=== PATIENT | female | born 1970 | race Caucasian/White ===

== ENCOUNTER 2016-03-31 08:21 | Emergency (ER) | payer BC ==
[~2016-03-31] VITALS: Ht 157.5 cm; Wt 79.1 kg
[~2016-03-31 08:21] MED LIST: ALBUTEROL SULFAT8 MG; ALBUTEROL0.83 MG/ML IH; AMITRIPTYLINE H10 M1 PO; AMITRIPTYLINE H50 M1 PO; AMOXICILLIN 50500 MG PO; AMOXICILLIN875 MG PO; ATIVAN; ATIVAN 1MG T1 MG/TAB PO; BACTRIM DS 8001 TAB PO; CARAFATE 1GM1 G PO; CATAFLAM50 MG PO; CELEXA; CEPHALEXIN500 M1 PO; CIPRO 500MG TA500 MG PO; CLEOCIN HC150 MG/CAP PO; CLEOCIN HCL300 MG PO; CLINDAMYCIN300 MG PO; COREG12.5 MG PO; COSOPT EYE DROPS; CYMBALTA 60MG60 MG PO; DIAZEPAM5 MG PO; DOXYCYCLINE 10100 MG PO; ESCITALOPRAM PO; FENTANYL 50MCG TOP; FLAGYL500 MG PO; GEODON 40MG40 MG PO; IBUPROFEN800 MG PO; LASIX 20MG TABL20 MG PO; LORTAB 5/500 501 TAB PO; LORTAB 7.5/5001 TAB PO; LORTAB ELIX0.5 MG/ML PO; METRONIDAZOLE375 MG PO; METRONIDAZOLE500 MG PO; MOTRIN 600600 MG/TAB PO; MOTRIN800 MG PO; MUPIROCIN2% TP; NAPROSYN500 MG PO; NEURONTIN300 MG/CAP; NEURONTIN300 MG/CAP PO; NEURONTIN600 MG/TAB PO; NO HOME MEDICATIONS; NORCO 325 MG-51 TAB PO; OCUFLOX OPHTH DR5 ML OS; OXYCONTIN 10MG10 MG PO; PEN-VEE K500 MG PO; PENICILLIN250 MG PO; PERCOCET 325 MG1 TA2; PERCOCET 325 MG1 TA2 PO; PERCOCET 325 MG1 TA3 PO; PERCR 7.5 PO; PERIDEX (CHLOR480 ML MM; PHENERGAN 25 TA25 MG PO; PREDNISONE20 MG PO; PRIL40 PO; PRILOSEC 20MG20 MG PO; PROAIR HFA0.09 MG/AC IH; PROTONIX20 MG PO; REGLAN 10MG10 MG/TAB PO; SEPTRA DS 8001 TAB PO; TOPROL XL 50MG50 MG; TOPROL XL 50MG50 MG PO; TUSS PO; VALIUM 5MG T5 MG/TAB PO; VICODIN 5/5001 UDTAB PO; ZESTRIL 20MG TA20 MG PO; ZITHROMAX Z PA250 MG PO; ZOFRAN 4MG T4 MG/TAB PO
[2016-03-31 08:24] VITALS: TEMP 97.7
[2016-03-31 09:14] LABS: BASO # 0.1 (0.0-0.2); BASO % 0.4 % (0.0-2.0); EOS # 0.1 (0.0-0.7); EOS % 0.9 % (0-4.0); GRAN # 8.2 (1.4-6.5); GRAN % 61.6 % (42.2-75.2); HEMATOCRIT 42.2 % (37.0-47.0); HEMOGLOBIN 14.3 g/dl (12.5-16.0); LYMPH # 3.9 (1.2-3.4); LYMPH % 29.7 % (20.0-51.0); MEAN CELL VOLUME 87 fl (80.0-100.0); MEAN CORPUSCULAR HEMOGLOBIN 29 pg (27.0-31.0); MEAN CORPUSCULAR HGB CONC 34 g/dl (33.0-37.0); MEAN PLATELET VOLUME 10.3 fl (7.4-10.4); MONO # 0.9 (0.1-0.6); MONO % 6.9 % (1.7-9.3); PLATELET COUNT 299 K/mm3 (130-400); RED BLOOD COUNT 4.88 M/mm3 (4.10-5.30); REDCELL DISTRIBUTION WIDTH-CV 13.2 % (11.5-14.5); WHITE BLOOD COUNT 13.3 K/mm3 (4.8-10.8)
[2016-03-31 09:23] LABS: ADJUSTED CALCIUM 9.3 mg/dL (8.4-10.2); ALBUMIN 4.4 gm/dL (3.5-5.0); BILIRUBIN,TOTAL 1.1 mg/dL (0.0-1.0); CALCIUM 9.6 mg/dL (8.4-10.2); CREATININE, serum 0.79 mg/dL (0.52-1.25); TOTAL PROTEIN 7.7 gm/dL (6.4-8.2)
[2016-03-31] MEDS ORDERED: ZOFRAN8 MG PO (09:33)
[2016-03-31] MEDS ORDERED: ULTRAM 50MG TAB50 MG PO (09:33)
[2016-03-31] MEDS ORDERED: BACTRIM DS 8001 TAB PO (09:33)
[2016-03-31 09:38] LABS: PH 6 (5-8); SQUAMOUS EPITHELIAL 0-2 /hpf; URINE APPEARANCE Hazy; URINE BACTERIA Occasional /hpf; URINE BILIRUBIN Negative (NEGATIVE); URINE BLOOD 2+ (NEGATIVE); URINE COLOR Yellow; URINE GLUCOSE Negative (NEGATIVE); URINE KETONE Negative (NEGATIVE); URINE RBC 0-2 /hpf; URINE UROBILINOGEN Negative (NEGATIVE); URINE WBC >50 /hpf
[2016-03-31 10:05] VITALS: BP 134/73; PULSE 99
== END 2016-03-31 10:29 | disposition home or self-care (01) ==
LOC: COL.ER 08:21
PROVIDERS: Emergency Medicine
DX: R10.11 Right upper quadrant pain (principal); R10.13 Epigastric pain; R19.7 Diarrhea, unspecified; R05 Cough; R06.2 Wheezing; F17.210 Nicotine dependence, cigarettes, uncomplicated
CPT/HCPCS: J1170; J1885; J2405; J7030

== ENCOUNTER 2016-10-27 19:30 | Emergency (ER) | payer SELFPAY ==
[~2016-10-27] VITALS: Ht 157.5 cm; Wt 78.2 kg
[~2016-10-27 19:30] MED LIST changes: +ULTRAM 50MG TAB50 MG PO; +ZOFRAN8 MG PO
[2016-10-27 19:31] VITALS: TEMP 98.1
[2016-10-27 20:15] LABS: BASO # 0.1 (0.0-0.2); BASO % 0.5 % (0.0-2.0); EOS # 0.4 (0.0-0.7); EOS % 3.8 % (0-4.0); GRAN # 3.8 (1.4-6.5); GRAN % 41.7 % (42.2-75.2); HEMATOCRIT 36.9 % (37.0-47.0); HEMOGLOBIN 12.6 g/dl (12.5-16.0); LYMPH # 4.4 (1.2-3.4); LYMPH % 47.8 % (20.0-51.0); MEAN CELL VOLUME 85 fl (80.0-100.0); MEAN CORPUSCULAR HEMOGLOBIN 29 pg (27.0-31.0); MEAN CORPUSCULAR HGB CONC 34 g/dl (33.0-37.0); MONO # 0.6 (0.1-0.6); MONO % 6.1 % (1.7-9.3); PLATELET COUNT 241 K/mm3 (130-400); RED BLOOD COUNT 4.33 M/mm3 (4.10-5.30); REDCELL DISTRIBUTION WIDTH-CV 12.3 % (11.5-14.5); WHITE BLOOD COUNT 9.1 K/mm3 (4.8-10.8)
[2016-10-27 20:28] LABS: ADJUSTED CALCIUM 8.6 mg/dL (8.4-10.2); ALANINE AMINOTRANSFERASE 20 U/L (9-52); ALBUMIN 4.3 gm/dL (3.5-5.0); ALKALINE PHOSPHATASE 74 U/L (50-136); ANION GAP 13 mmol/L (7-16); BILIRUBIN,TOTAL 0.6 mg/dL (0.0-1.0); BLOOD UREA NITROGEN 10 mg/dL (7-17); CALCIUM 8.8 mg/dL (8.4-10.2); CARBON DIOXIDE 23 mmol/L (22-30); CHLORIDE 103 mmol/L (98-107); CREATININE, serum 0.67 mg/dL (0.52-1.25); GLUCOSE 95 mg/dL (74-106); POTASSIUM 3.7 mmol/L (3.4-5.0); SODIUM 138 mmol/L (137-145); TOTAL PROTEIN 7.3 gm/dL (6.4-8.2)
[2016-10-27 20:36] LABS: C-REACTIVE PROTEIN < 0.5 mg/dL (0.0-0.9)
[2016-10-27 20:39] LABS: TROPONIN-I < 0.012 ng/mL (0.000-0.034)
[2016-10-27 20:40] LABS: PH 6 (5-8); SQUAMOUS EPITHELIAL 0-2 /hpf; URINE APPEARANCE Hazy; URINE BACTERIA Rare /hpf; URINE BILIRUBIN Negative (NEGATIVE); URINE BLOOD 1+ (NEGATIVE); URINE COLOR Straw; URINE GLUCOSE Negative (NEGATIVE); URINE KETONE Negative (NEGATIVE); URINE RBC 0-2 /hpf; URINE UROBILINOGEN Negative (NEGATIVE)
[2016-10-27] MEDS ORDERED: VOLTAREN 75 DR75 MG PO (21:08)
[2016-10-27] MEDS ORDERED: ZANAFLEX CAPSULE2 MG PO (21:08)
[2016-10-27] MEDS ORDERED: MACROBID 1100 MG/CAP PO (21:09)
[2016-10-27] MEDS ORDERED: TOPROL XL 25MG25 MG PO (21:22)
[2016-10-27 21:35] VITALS: BP 113/78; PULSE 85
== END 2016-10-27 21:35 | disposition home or self-care (01) ==
LOC: COL.ER 19:30
PROVIDERS: Family Medicine
DX: N39.0 Urinary tract infection, site not specified (principal); R60.9 Edema, unspecified; M54.5 Low back pain; M79.661 Pain in right lower leg; I10 Essential (primary) hypertension; Z85.3 Personal history of malignant neoplasm of breast; G90.511 Complex regional pain syndrome I of right upper limb; F10.120 Alcohol abuse with intoxication, uncomplicated; Y90.6 Blood alcohol level of 120-199 mg/100 ml; M62.830 Muscle spasm of back
CPT/HCPCS: J2270; J2405

== ENCOUNTER 2017-12-02 14:15 | Emergency (ER) | payer SELFPAY ==
[~2017-12-02] VITALS: Ht 157.5 cm; Wt 77.3 kg
[~2017-12-02 14:15] MED LIST changes: +MACROBID 1100 MG/CAP PO; +TOPROL XL 25MG25 MG PO; +VOLTAREN 75 DR75 MG PO; +ZANAFLEX CAPSULE2 MG PO
[2017-12-02 14:33] VITALS: TEMP 97.8
[2017-12-02 15:52] LABS: BASO # 0.1 (0.0-0.2); BASO % 0.6 % (0.0-2.0); EOS # 0.4 (0.0-0.7); EOS % 3.9 % (0-4.0); GRAN # 4.5 (1.4-6.5); GRAN % 48.5 % (42.2-75.2); HEMATOCRIT 38.4 % (37.0-47.0); HEMOGLOBIN 12.9 g/dl (12.5-16.0); LYMPH # 3.7 (1.2-3.4); LYMPH % 40.3 % (20.0-51.0); MEAN CELL VOLUME 86 fl (80.0-100.0); MEAN CORPUSCULAR HEMOGLOBIN 29 pg (27.0-31.0); MEAN CORPUSCULAR HGB CONC 34 g/dl (33.0-37.0); MEAN PLATELET VOLUME 10.1 fl (7.4-10.4); MONO # 0.6 (0.1-0.6); MONO % 6.6 % (1.7-9.3); PLATELET COUNT 250 K/mm3 (130-400); RED BLOOD COUNT 4.45 M/mm3 (4.10-5.30); REDCELL DISTRIBUTION WIDTH-CV 12.7 % (11.5-14.5)
[2017-12-02 16:09] LABS: ALANINE AMINOTRANSFERASE 23 U/L (9-52); ALBUMIN 4.1 gm/dL (3.5-5.0); ALKALINE PHOSPHATASE 77 U/L (50-136); ANION GAP 10 mmol/L (7-16); AST,SGOT 17 U/L (15-37); BILIRUBIN,TOTAL 0.3 mg/dL (0.0-1.0); BLOOD UREA NITROGEN 10 mg/dL (7-17); CALCIUM 8.7 mg/dL (8.4-10.2); CARBON DIOXIDE 25 mmol/L (22-30); CHLORIDE 105 mmol/L (98-107); GLUCOSE 92 mg/dL (74-106); SODIUM 140 mmol/L (137-145); TOTAL PROTEIN 7.2 gm/dL (6.4-8.2); URIC ACID 5.7 mg/dL (2.5-6.2)
[2017-12-02 16:11] LABS: C-REACTIVE PROTEIN < 0.5 mg/dL (0.0-0.9)
[2017-12-02 16:18] LABS: ERYTHROCYTE SEDIMENTATION RATE 8 mm/hr (0-20)
[2017-12-02 16:58] VITALS: BP 140/85; PULSE 79
== END 2017-12-02 17:02 | disposition home or self-care (01) ==
LOC: COL.ER 14:15
PROVIDERS: Emergency Medicine
DX: M25.561 Pain in right knee (principal); I10 Essential (primary) hypertension

== ENCOUNTER 2019-10-15 22:05 | Emergency (ER) | payer SELFPAY ==
[~2019-10-15] VITALS: Ht 157.5 cm; Wt 75.0 kg
[2019-10-15 22:08] VITALS: TEMP 98.1
[2019-10-15 22:21] LABS: HEMATOCRIT 37.8 % (37.0-47.0); HEMOGLOBIN 12.8 g/dl (12.5-16.0); MEAN CELL VOLUME 84 fl (80.0-100.0); MEAN CORPUSCULAR HEMOGLOBIN 28 pg (27.0-31.0); MEAN CORPUSCULAR HGB CONC 34 g/dl (33.0-37.0); MEAN PLATELET VOLUME 10.3 fl (7.4-10.4); PLATELET COUNT 284 K/mm3 (130-400); RED BLOOD COUNT 4.51 M/mm3 (4.10-5.30); REDCELL DISTRIBUTION WIDTH-CV 12.7 % (11.5-14.5)
[2019-10-15 22:27] LABS: PROTHROMBIN TIME 11.7 SECONDS (9.7-12.8)
[2019-10-15 22:29] LABS: ALANINE AMINOTRANSFERASE 12 U/L (4-34); ALBUMIN 3.9 gm/dL (3.5-5.0); ALKALINE PHOSPHATASE 84 U/L (50-136); ANION GAP 7 mmol/L (7-16); AST,SGOT 17 U/L (15-37); BILIRUBIN,TOTAL 0.4 mg/dL (0.0-1.0); BLOOD UREA NITROGEN 7 mg/dL (7-17); CALCIUM 9.2 mg/dL (8.4-10.2); CARBON DIOXIDE 28 mmol/L (22-30); CHLORIDE 102 mmol/L (98-107); CREATININE, serum 0.81 (0.52-1.25); GLUCOSE 112 mg/dL (74-106); PARTIAL THROMBOPLASTIN TIME 35.1 SECONDS (26.0-37.0); POTASSIUM 3.4 mmol/L (3.4-5.0); SODIUM 138 mmol/L (137-145); TOTAL PROTEIN 7.1 gm/dL (6.4-8.2)
[2019-10-15 22:34] LABS: EOSINOPHIL 4 % (0-4); LYMPHOCYTE 53 % (20.0-51.0); NEUTROPHILS 34 % (42.0-75.2); PLATELET ESTIMATE NORMAL (NORMAL)
[2019-10-15 22:40] LABS: TROPONIN-I < 0.012 ng/mL (0.000-0.035)
[2019-10-15 23:53] LABS: COLLECTION METHOD CLEAN CATCH
[2019-10-16] LABS: PH 6 (5-8); SQUAMOUS EPITHELIAL 0-2 /hpf; URINE APPEARANCE Clear; URINE BACTERIA Occasional /hpf; URINE BILIRUBIN Negative (NEGATIVE); URINE BLOOD Negative (NEGATIVE); URINE COLOR Straw; URINE GLUCOSE Negative (NEGATIVE); URINE KETONE Negative (NEGATIVE); URINE LEUKOCYTE ESTERASE 1+ (NEGATIVE); URINE NITRATE Negative (NEGATIVE); URINE PROTEIN(semi-quant) Negative (NEGATIVE); URINE RBC 0-2 /hpf; URINE UROBILINOGEN Negative (NEGATIVE)
[2019-10-16 00:07] LABS: TRICYCLIC ANTIDEPRESS URINE NEGATIVE
[2019-10-16] MEDS ORDERED: BACTRIM DS 8001 TAB PO (00:55)
[2019-10-16 01:07] VITALS: BP 144/70; PULSE 78
== END 2019-10-16 01:07 | disposition home or self-care (01) ==
LOC: COL.ER 22:05
PROVIDERS: Family Medicine
DX: R07.9 Chest pain, unspecified (principal); N39.0 Urinary tract infection, site not specified; F15.129 Other stimulant abuse with intoxication, unspecified; R06.02 Shortness of breath; R51 Headache; R05 Cough; F17.210 Nicotine dependence, cigarettes, uncomplicated; Z85.3 Personal history of malignant neoplasm of breast; Z90.13 Acquired absence of bilateral breasts and nipples
CPT/HCPCS: J7030

== ENCOUNTER 2020-11-01 10:17 | Emergency (ER) | payer SELFPAY ==
[~2020-11-01] VITALS: Ht 157.5 cm; Wt 66.8 kg
[2020-11-01 10:41] VITALS: BP 114/77; PULSE 98; TEMP 98
[2020-11-01] MEDS ORDERED: NORCO 325 MG-51 TAB PO (11:31)
== END 2020-11-01 12:15 | disposition home or self-care (01) ==
LOC: COL.ER 10:17
DX: S80.11XA Contusion of right lower leg, initial encounter (principal); W01.198A Fall on same level from slipping, tripping and stumbling with subsequent striking against other object, initial encounter

== ENCOUNTER 2020-12-10 10:59 | Emergency (ER) | payer SELFPAY ==
[~2020-12-10] VITALS: Ht 157.5 cm; Wt 69.0 kg
[2020-12-10] MEDS ORDERED: DOXYCYCLINE 10100 MG PO (13:08)
[2020-12-10] MEDS ORDERED: CEPHALEXIN500 M1 PO (13:09)
[2020-12-10 13:45] VITALS: BP 148/64; PULSE 88; TEMP 97.6
== END 2020-12-10 14:25 | disposition home or self-care (01) ==
LOC: COL.ER 10:59
DX: L03.313 Cellulitis of chest wall (principal); F17.200 Nicotine dependence, unspecified, uncomplicated